=== PATIENT | male | born 1955 ===

== ENCOUNTER 2021-04-19 11:25 | Emergency (ER) | payer MEDICARE ==
--- NOTE | 2021-04-19 12:07 | Emergency Department Report ---
ED General Adult HPI - General Chief complaint: Syncope Stated complaint: I think I passed out Time Seen by Provider: 04/19/21 12:04 Source: patient, EMS ( EMS documentation not available at time of chart dictation ), RN notes reviewed Mode of arrival: Stretcher Limitations: No Limitations - History of Present Illness Initial comments: The patient is a 65-year-old gentleman. He is not known to myself previously. He does not have a primary care doctor. He states he has no long-term medical conditions. He does not take prescription medications. The patient presents to the ER today with a complaint of possible seizure versus syncope. The patient does admit to consuming alcohol every day or every other day, he usually consumes a handle. His last alcoholic beverage was yesterday. To the best of his knowledge, he is never had a history of alcohol withdrawal. The patient reports that he felt like he was in his usual state of health earlier on this morning, when he felt a little bit nauseous, and had to defecate. He sat down and attempted to defecate, and reports that he had to "strain really hard." He reports that shortly after this, he was walking outside, and felt weak, and thinks that he might have passed out but is not certain. Prior to the event, he denies headache, neck pain, chest pain, abdominal pain or shortness of breath. The patient denies travel, surgery, immobilization, focal extremity weakness/numbness, DVT/PE risk factors. He reports that he feels a little "jittery" and "shaky", but he does not have a known history of alcohol withdrawal that he is aware of. He reports that people who witnessed this event stated that he might have been shaking, but he is not certain. At the moment, he denies physical pain, but he still feels a little bit anxious about what happened. However, he endorses that he feels like he is essentially back to his baseline. -: Sudden Consistency: now resolved Improves with: none Worsens with: none - Related Data Previous Rx's Medication Instructions Recorded Last Taken Type Multivitamin with Folic Acid [Cvs 400 mcg PO QDAY #30 tablet 04/19/21 Unknown Rx One Daily Essential Tablet] chlordiazePOXIDE [Librium] 25 mg PO Q6H PRN #25 capsule 04/19/21 Unknown Rx Allergies Allergy/AdvReac Type Severity Reaction Status Date / Time No Known Allergies Allergy Unverified 04/19/21 12:01 ED Review of Systems ROS: Stated complaint: LOW HEART RATE Other details as noted in HPI Constitutional: malaise, weakness. denies: fever Eyes: denies: eye discharge ENT: denies: epistaxis Respiratory: denies: cough Cardiovascular: syncope. denies: chest pain Gastrointestinal: denies: abdominal pain, nausea Genitourinary: denies: dysuria Neurological: weakness. denies: headache Psychiatric: anxiety. denies: homicidal thoughts, suicidal thoughts ED Past Medical Hx - Past Medical History Previous Medical History?: No - Surgical History Past Surgical History?: No - Social History Smoking Status: Current Some Day Smoker Substance Use Type: Alcohol, Marijuana - Medications Home Medications: Home Medications Medication Instructions Recorded Confirmed Last Taken Type Multivitamin with Folic Acid [[facility]vs 400 mcg PO QDAY #30 tablet 04/19/21 Unknown Rx One Daily Essential Tablet] chlordiazePOXIDE [Librium] 25 mg PO Q6H PRN #25 capsule 04/19/21 Unknown Rx ED Physical Exam - General Limitations: No Limitations General appearance: alert, anxious - Head Head exam: Present: atraumatic, normocephalic - Eye Eye exam: Present: normal appearance, PERRL, EOMI, other (Visual acuity intact to finger counting, color perception, reading at a close distance). Absent: nystagmus - ENT ENT exam: Present: normal exam, mucous membranes dry, normal external ear exam, other (Tongue fasciculations noted) - Neck Neck exam: Present: normal inspection, full ROM. Absent: tenderness, meningismus - Respiratory Respiratory exam: Present: normal lung sounds bilaterally. Absent: respiratory distress, wheezes, rales, rhonchi, stridor, decreased breath sounds - Cardiovascular Cardiovascular Exam: Present: normal rhythm, bradycardia, normal heart sounds. Absent: tachycardia, irregular rhythm, systolic murmur, diastolic murmur, rubs, gallop - GI/Abdominal GI/Abdominal exam: Present: soft. Absent: distended, tenderness, guarding, rebound, rigid, pulsatile mass - Rectal Rectal exam: Present: deferred - Extremities Exam Extremities exam: Present: normal inspection, full ROM, other (2+ pulses noted in the bilateral upper and lower extremities. There is no palpable cord. negative Homans sign. Muscular compartments are soft. The pelvis is stable.). Absent: pedal edema, calf tenderness - Back Exam Back exam: Present: normal inspection, full ROM. Absent: tenderness, CVA tenderness (R), CVA tenderness (L), paraspinal tenderness, vertebral tenderness - Neurological Exam Neurological exam: Present: alert, oriented X3, other (No facial droop. Tongue midline. Extraocular movements intact bilaterally. Facial sensation intact to light touch in V1, V2, V3 distribution bilaterally. 5 and a 5 strength in 4 extremities. Sensation intact to light touch in 4 extremities.). Absent: motor sensory deficit (Upper extremity tremors no) - Psychiatric Psychiatric exam: Present: anxious - Skin Skin exam: Present: warm, dry, intact, normal color. Absent: rash ED Course Vital Signs 04/19/21 04/19/21 04/19/21 11:39 11:45 11:55 Temperature 98.3 F Pulse Rate 60 Respiratory 13 Rate Blood Pressure 157/87 165/94 O2 Sat by Pulse 96 97 96 Oximetry 04/19/21 04/19/21 04/19/21 12:15 12:27 12:29 Temperature Pulse Rate 53 L Respiratory 16 Rate Blood Pressure 165/94 O2 Sat by Pulse 97 97 Oximetry 04/19/21 04/19/21 04/19/21 12:31 13:01 13:15 Temperature Pulse Rate 61 56 L Respiratory 22 16 13 Rate Blood Pressure 162/92 169/96 165/94 O2 Sat by Pulse 96 93 97 Oximetry 04/19/21 04/19/21 04/19/21 13:30 14:01 14:31 Temperature Pulse Rate 52 L 52 L 53 L Respiratory 17 19 13 Rate Blood Pressure 169/96 152/81 142/78 O2 Sat by Pulse 97 97 98 Oximetry 04/19/21 14:45 Temperature Pulse Rate 47 L Respiratory 19 Rate Blood Pressure 142/78 O2 Sat by Pulse 96 Oximetry - Reevaluation(s) Reevaluation #1: 04/19/21 15:10 Differential diagnosis, including but not limited to: Orthostasis, vagal event, structural cardiac disease, acute coronary syndrome, alcohol withdrawal seizure, alcohol dependence, cannabis dependence Assessment and plan: 62-year-old gentleman, who was afebrile, with reassuring vital signs, clinically sober at this time with a GCS of 15, who is not currently tachycardic, tachypneic or hypoxic, low risk by Wells criteria for pulmonary embolism, who initially has some tremors and tongue fasciculations and consumes alcohol on a daily basis. Suspect events today is likely combination of vagal event, and/or alcohol withdrawal. Initial CIWA score 6; after medication with Valium, now a 2. Objective laboratory studies unremarkable. Given history of alcohol dependence and event today, noncontrast CT scan of the brain will be obtained. Patient is clinically sober at this time. The cervical spine is cleared through nexus and croat[place] c spine rule He will need to follow-up with a primary care doctor or tile installer for history of bradycardia. Given normal blood pressure, normal mentation at this time, would consider bradycardia to be asymptomatic, and suitable for outpatient follow-up. He should not drive or operate motor vehicles for 6 months, or until cleared to do so by her primary care doctor or tile installer 04/19/21 15:[address] scan of the brain is negative for acute findings. Repeat laboratory studies pending. 04/19/21 16:22 EKG unchanged x2. Troponin negative x2. No episodes of syncope or seizure noted while here in the emergency room. The patient feels improved. Discharged with outpatient follow-up. Return precautions are reviewed. ED Medical Decision Making - Lab Data Result diagrams: 04/19/21 12:31 04/19/21 12:31 Vital Signs 04/19/21 04/19/21 04/19/21 11:39 11:45 11:55 Temperature 98.3 F Pulse Rate 60 Respiratory 13 Rate Blood Pressure 157/87 165/94 O2 Sat by Pulse 96 97 96 Oximetry 04/19/21 04/19/21 04/19/21 12:15 12:27 12:29 Temperature Pulse Rate 53 L Respiratory 16 Rate Blood Pressure 165/94 O2 Sat by Pulse 97 97 Oximetry 04/19/21 04/19/21 04/19/21 12:31 13:01 13:15 Temperature Pulse Rate 61 56 L Respiratory 22 16 13 Rate Blood Pressure 162/92 169/96 165/94 O2 Sat by Pulse 96 93 97 Oximetry 04/19/21 04/19/21 04/19/21 13:30 14:01 14:31 Temperature Pulse Rate 52 L 52 L 53 L Respiratory 17 19 13 Rate Blood Pressure 169/96 152/81 142/78 O2 Sat by Pulse 97 97 98 Oximetry 04/19/21 14:45 Temperature Pulse Rate 47 L Respiratory 19 Rate Blood Pressure 142/78 O2 Sat by Pulse 96 Oximetry Lab Results 04/19/21 04/19/21 04/19/21 Range/Units 12:29 12:31 12:31 WBC 9.0 (4.5-11.0) K/mm3 RBC 5.21 H (3.65-5.03) M/mm3 Hgb 15.7 H (11.8-15.2) gm/dl Hct 48.7 H (35.5-45.6) % MCV 94 (84-94) fl MCH 30 (28-32) pg MCHC 32 (32-34) % RDW 14.4 (13.2-15.2) % Plt Count 74 L (140-440) K/mm3 Lymph % (Auto) 16.5 (13.4-35.0) % [place] % (Auto) 6.8 (0.0-7.3) % Eos % (Auto) 0.8 (0.0-4.3) % Baso % (Auto) 0.4 (0.0-1.8) % Lymph # (Auto) 1.2 (1.2-5.4) K/mm3 [place] # (Auto) 0.4 (0.0-0.8) K/mm3 Eos # (Auto) 0.1 (0.0-0.4) K/mm3 Baso # (Auto) 0.0 (0.0-0.1) K/mm3 Seg Neutrophils % 75.7 H (40.0-70.0) % Seg Neutrophils # 5.5 (1.8-7.7) K/mm3 PT 13.1 (12.2-14.9) Sec. INR 0.89 (0.87-1.13) Sodium (137-145) mmol/L Potassium (3.6-5.0) mmol/L Chloride (98-107) mmol/L Carbon Dioxide (22-30) mmol/L Anion Gap mmol/L BUN (9-20) mg/dL Creatinine (0.8-1.3) mg/dL Estimated GFR ml/min BUN/Creatinine Ratio % Glucose (75-100) mg/dL Calcium (8.4-10.2) mg/dL Magnesium (1.7-2.3) mg/dL Total Creatine Kinase (55-170) units/L Troponin T (0.00-0.029) ng/mL TSH (0.270-4.200) mlU/mL Urine Color Straw (Yellow) Urine Turbidity Clear (Clear) Urine pH 7.0 (5.0-7.0) Ur Specific Mack 1.005 (1.003-1.030) Urine Protein <15 mg/dl (Negative) mg/dL Urine Glucose (UA) Neg (Negative) mg/dL Urine Ketones Neg (Negative) mg/dL Urine Blood Neg (Negative) Urine Nitrite Neg (Negative) Urine Bilirubin Neg (Negative) Urine Urobilinogen < 2.0 (<2.0) mg/dL Ur Leukocyte Esterase Neg (Negative) Urine WBC (Auto) < 1.0 (0.0-6.0) /HPF Urine RBC (Auto) 2.0 (0.0-6.0) /HPF 04/19/21 04/19/21 Range/Units 12:31 12:31 WBC (4.5-11.0) K/mm3 RBC (3.65-5.03) M/mm3 Hgb (11.8-15.2) gm/dl Hct (35.5-45.6) % MCV (84-94) fl MCH (28-32) pg MCHC (32-34) % RDW (13.2-15.2) % Plt Count (140-440) K/mm3 Lymph % (Auto) (13.4-35.0) % [place] % (Auto) (0.0-7.3) % Eos % (Auto) (0.0-4.3) % Baso % (Auto) (0.0-1.8) % Lymph # (Auto) (1.2-5.4) K/mm3 [place] # (Auto) (0.0-0.8) K/mm3 Eos # (Auto) (0.0-0.4) K/mm3 Baso # (Auto) (0.0-0.1) K/mm3 Seg Neutrophils % (40.0-70.0) % Seg Neutrophils # (1.8-7.7) K/mm3 PT (12.2-14.9) Sec. INR (0.87-1.13) Sodium 143 (137-145) mmol/L Potassium 3.7 (3.6-5.0) mmol/L Chloride 105.4 (98-107) mmol/L Carbon Dioxide 26 (22-30) mmol/L Anion Gap 15 mmol/L BUN 11 (9-20) mg/dL Creatinine 0.9 (0.8-1.3) mg/dL Estimated GFR > 60 ml/min BUN/Creatinine Ratio 12 % Glucose 93 (75-100) mg/dL Calcium 8.8 (8.4-10.2) mg/dL Magnesium 2.10 (1.7-2.3) mg/dL Total Creatine Kinase 184 H (55-170) units/L Troponin T < 0.010 (0.00-0.029) ng/mL TSH 0.627 (0.270-4.200) mlU/mL Urine Color (Yellow) Urine Turbidity (Clear) Urine pH (5.0-7.0) Ur Specific Mack (1.003-1.030) Urine Protein (Negative) mg/dL Urine Glucose (UA) (Negative) mg/dL Urine Ketones (Negative) mg/dL Urine Blood (Negative) Urine Nitrite (Negative) Urine Bilirubin (Negative) Urine Urobilinogen (<2.0) mg/dL Ur Leukocyte Esterase (Negative) Urine WBC (Auto) (0.0-6.0) /HPF Urine RBC (Auto) (0.0-6.0) /HPF - EKG Data -: EKG Interpreted by Ma EKG shows normal: sinus rhythm Rate: normal - EKG Data When compared to previous EKG there are: previous EKG unavailable 04/19/21 15:09 EKG #1 is interpreted at 12: 20 Sinus rhythm, bradycardia, rate 53 bpm. Left axis deviation, left anterior fascicular block, motion artifact, normal intervals, left ventricular hypertrophy. Abnormal EKG. Not a STEMI. - Radiology Data Radiology results: pending, report reviewed, image reviewed CT head/brain wo con INDICATION: etoh withdrawal, sz vs syncope. TECHNIQUE: All CT scans at this location are performed using CT dose reduction for ALARA by means of automated exposure control. COMPARISON: None available. FINDINGS: There is no acute hemorrhage, hydrocephalus, brain edema, or mass effect. There is mild global brain atrophy. Mild prominent cisterna magna on a developmental basis is noted. The included paranasal sinuses and mastoid air cells are clear. The orbits appear unremarkable. IMPRESSION: 1. No acute findings. Signer Name: Jean Mendez MD Signed: 04/19/2021 2:37 PM Workstation Name: [id number] Critical care attestation.: If time is entered above; I have spent that time in minutes in the direct care of this critically ill patient, excluding procedure time. ED Disposition Clinical Impression: Alcohol dependence, Bradycardia, History of syncope Disposition: HOME / SELF CARE / HOMELESS Is pt being admited?: No Does the pt Need Aspirin: No Condition: Good Instructions: Alcohol Use Disorder, Syncope Additional Instructions: We recommend that the patient discontinue consumption of alcohol. Recommend that the patient take a multivitamin on a daily basis. Recommend the patient not drive or operate motor vehicles for the next 6 months, or until cleared to do so by a primary care doctor or tile installer. Recommend that patient follow-up with a primary care doctor or tile installer within the next 3 to 5 days. For the patient's convenience, local primary care and/or cardiology clinics have been listed that he may follow-up with. We suspect that the patient had a combination alcohol withdrawal seizure, as well as vagal event. Vagal event typically occurs with a transient decrease in blood pressure, secondary to straining, such as attempting with defecation. As we discussed, the patient should consume plenty of fiber, vegetables and lean protein for history of constipation, drink 6 cups of water per day. Please return to the emergency room right away with new pain, worsened pain, migration of pain, projectile vomiting, change in mental status, confusion, inability to tolerate liquid feeds, new, worsened or different symptoms not present on the initial emergency room evaluation Prescriptions: Multivitamin with Folic Acid [Cvs One Daily Essential Tablet] 400 mcg PO QDAY #30 tablet chlordiazePOXIDE [Librium] 25 mg PO Q6H PRN #25 capsule PRN Reason: Alcohol Withdrawal Referrals: [facility] [Provider Group] - 3-5 Days [facility] [Provider Group] - 3-5 Days Heart Score - HEART Score History: Slightly suspicious EKG: Non-specific Age: 45-65 Risk factors: 1-2 risk factors Troponin: < normal limit HEART Score: 3 - EKG Read Time Time EKG Completed: 12:20 EKG Read Time: 12:20 - Critical Actions Critical Actions: 0-3 pts:0.9-1.7%risk of adverse cardiac event.Candidate for discharge
[2021-04-19 13:17] LABS: Bilirubin,Urine NEG (Negative); Blood,Urine NEG (Negative); Color,Urine Straw (Yellow); Protein,Urine <15 mg/dL mg/dL (Negative); Urobilinogen,Urine < 2.0 mg/dL (<2.0)
[2021-04-19] MEDS ORDERED: THIAMINE 100 MG, FOLIC ACID 1 MG, MULTIPLE VITAMIN INJ, ADULT 10 ML in SODIUM CHLORIDE ... IV ONE (13:30)
[2021-04-19] MEDS ORDERED: diazePAM 10 MG/2 ML SYRINGE IV ONE (13:30)
[2021-04-19 13:35] LABS: BUN/Creatinine Ratio 12; Blood Urea Nitrogen 11 mg/dL (9-20); Calcium 8.8 mg/dL (8.4-10.2); Hemolysis Index 18
[2021-04-19 13:39] LABS: Eosinophils # (Auto) 0.1 K/mm3 (0.0-0.4); Eosinophils % (Auto) 0.8 % (0.0-4.3); Monocytes # (Auto) 0.4 K/mm3 (0.0-0.8)
[2021-04-19 13:48] LABS: WBC,Urine < 1.0 /HPF (0.0-6.0)
[2021-04-19 13:56] LABS: INR 0.89 (0.87-1.13)
[2021-04-19 13:57] LABS: Hematocrit 48.7 % (35.5-45.6); Hemoglobin 15.7 gm/dl (11.8-15.2); Lymphocytes % (Auto) 16.5 % (13.4-35.0); Mean Corpuscular HGB Conc 32 % (32-34); Mean Corpuscular Volume 94 fl (84-94); Monocytes % (Auto) 6.8 % (0.0-7.3); Red Blood Count 5.21 M/mm3 (3.65-5.03); Red Cell Distribution Width 14.4 % (13.2-15.2)
[2021-04-19 13:58] LABS: Basophils % (Auto) 0.4 % (0.0-1.8); Lymphocytes # (Auto) 1.2 K/mm3 (1.2-5.4)
[2021-04-19 14:47] LABS: Platelet Count 74 K/mm3 (140-440)
--- NOTE | 2021-04-19 15:42 | Cat Scan Report ---
CT head/brain wo con INDICATION: etoh withdrawal, sz vs syncope. TECHNIQUE: All CT scans at this location are performed using CT dose reduction for ALARA by means of automated e xposure control. COMPARISON: None available. FINDINGS: There is no acute hemorrhage, hydrocephalus, brain edema, or mass effect. There is mild global brain atrophy. Mild prominent cisterna magna on a developmental basis is noted. The included paranasal sinu ses and mastoid air cells are clear. The orbits appear unremarkable. IMPRESSION: 1. No acute findings. Signer Name: Jean Mendez MD Signed: 04/19/2021 3:37 PM Workstation Name: [id number]
[2021-04-19 16:01] LABS: Albumin 4.6 g/dL (3.9-5); Bilirubin,Direct 0.2 mg/dL (0-0.2)
[2021-04-19 16:43] VITALS: BP 124/82
--- NOTE | 2021-04-20 09:31 | Electrocardiograph Report ---
[facility] Test Date: 2021-04-19 Test Time: 12:20:04 Pat Name: ELINA PARK Department: Room: Gender: M [employer]: [employer] : 1955 Requested By: ALANA CHRISTENSEN Order Number: [id number] Reading MD: Bharathi Ledbetter Measurements Intervals [place] Rate: 53 P: 31 WV: 184 QRS: -9 QRSD: 102 T: 22 QT: 430 QTc: 406 Interpretive Statements Gender not entered, assumed to be male for purpose of ECG interpretation Sinus bradycardia Probable left ventricular hypertrophy No previous ECG available for comparison Electronically Signed On 04-20-2021 9:31:11 EDT by Bharathi Ledbetter
--- NOTE | 2021-04-20 09:32 | Electrocardiograph Report ---
[facility] Test Date: 2021-04-19 Test Time: 16:13:21 Pat Name: ELINA PARK Department: Room: Gender: M Emergency Communications Operator: ALIRIO : 1955 Requested By: ALANA CHRISTENSEN Order Number: [id number] Reading MD: Bharathi Ledbetter Measurements Intervals [place] Rate: 53 P: 51 [place]: 186 QRS: 2 QRSD: 94 T: 47 QT: 425 QTc: 398 Interpretive Statements Sinus bradycardia Compared to ECG 04/19/2021 12:20:04 No significant changes Electronically Signed On 04-20-2021 9:31:50 EDT by Bharathi Ledbetter
== END 2021-04-19 17:03 | disposition home or self-care (01) ==
LOC: ED 11:25
DX: F10.20 Alcohol dependence, uncomplicated (principal); R00.1 Bradycardia, unspecified; R55 Syncope and collapse; F17.200 Nicotine dependence, unspecified, uncomplicated; F12.90 Cannabis use, unspecified, uncomplicated
CPT/HCPCS: 36415; 70450; 80048; 80076; 81001; 82550; 83735; 84443; 84484; 85025; 85610; 93005; 96365; 96366; 96375; 99284; J3360; J3411; J7030; 80320; G0480